=== PATIENT | male | born 1960 | race African-American/Black ===

== ENCOUNTER 2022-05-10 09:31 | Inpatient (IN) | payer OTHER ==
[2022-05-10] MEDS ORDERED: NICOTINE 10 MG CARTRIDGE (INHALER) IH PRN (11:52)
[2022-05-10] MEDS ORDERED: POLYETHYLENE GLYCOL (HEALTHYLAX) 3350 17 GM PACKET PO PRN (11:52)
[2022-05-10] MEDS ORDERED: MAG HYDROX/AL HYDROX/SIMETH 30 ML UNIT-DOSE CUP PO PRN (11:52)
[2022-05-10] MEDS ORDERED: LORazepam 1 MG TABLET PO PRN (11:52)
[2022-05-10] MEDS ORDERED: NALOXONE HCL 0.4 MG/ML VIAL IM PRN (11:52)
[2022-05-10] MEDS ORDERED: DICYCLOMINE HCL 10 MG CAPSULE PO PRN (11:52)
[2022-05-10] MEDS ORDERED: guaiFENesin 600 MG TABLET.ER (FP) PO PRN (11:52)
[2022-05-10] MEDS ORDERED: NICOTINE POLACRILEX 2 MG GUM BUC PRN (11:52)
[2022-05-10] MEDS ORDERED: MAGNESIUM HYDROX 2400MG/30ML ORAL SUSPENSION 30 ML CUP PO PRN (11:52)
[2022-05-10] MEDS ORDERED: ONDANSETRON *ODT* 4 MG TABLET SL PRN (11:52)
[2022-05-10] MEDS ORDERED: BENZOCAINE/MENTHOL (CHLORASEPTIC ) LOZENGE MM PRN (11:52)
[2022-05-10] MEDS ORDERED: BENZONATATE 200 MG CAPSULE PO PRN (11:52)
[2022-05-10] MEDS ORDERED: ACETAMINOPHEN 325 MG TABLET (FP) PO PRN (11:52)
[2022-05-10] MEDS ORDERED: IBUPROFEN 400 MG TABLET (FP) PO PRN (11:52)
[2022-05-10] MEDS ORDERED: NALOXONE HCL (KLOXXADO) 8 MG SPRAY NS PRN (11:52)
[2022-05-10] MEDS ORDERED: METHYL SALICYLATE/MENTHOL OINT 30 GM TUBE TP PRN (11:57)
[2022-05-10] MEDS ORDERED: ASPIRIN 81 MG CHEWABLE TABLETS PO SCH (12:00)
[2022-05-10] MEDS: TAMSULOSIN HCL 0.4 MG CAP PO SCH (12:56)
[2022-05-10] MEDS: METHOCARBAMOL 500 MG TABLET PO PRN (12:56)
[2022-05-10] MEDS: PANTOPRAZOLE 40 MG TABLET PO SCH (12:57)
[2022-05-10] MEDS: ASPIRIN 81 MG CHEWABLE TABLETS PO SCH (12:57)
[2022-05-10] MEDS: NICOTINE 21 MG/24 HOURS TOPICAL PATCH TD SCH (12:58)
[2022-05-10] MEDS: LORazepam 2 MG TABLET PO SCH ×2 (17:32→22:36)
[2022-05-10] MEDS: THIAMINE HCL 100 MG TABLET (FP) PO SCH (22:37)
[2022-05-10] MEDS: MELATONIN 5 MG TABLETS PO SCH (22:37)
[2022-05-10] MEDS: ATORVASTATIN CA 20 MG TABLET (FP) PO SCH (22:38)
[2022-05-11] MEDS: LORazepam 2 MG TABLET PO SCH ×4 (05:18→22:17)
[2022-05-11] MEDS: TAMSULOSIN HCL 0.4 MG CAP PO SCH (10:12)
[2022-05-11] MEDS: PRENATAL VITAMINS W/ FOLIC ACID TABLET (FP) PO SCH (10:12)
[2022-05-11] MEDS: METHOCARBAMOL 500 MG TABLET PO PRN (10:12)
[2022-05-11] MEDS: ASPIRIN 81 MG CHEWABLE TABLETS PO SCH (10:12)
[2022-05-11] MEDS: PANTOPRAZOLE 40 MG TABLET PO SCH (10:12)
[2022-05-11] MEDS: NICOTINE 21 MG/24 HOURS TOPICAL PATCH TD SCH (10:13)
[2022-05-11 10:58] LABS: HEMATOCRIT 34.5 % (35.4-49); HEMOGLOBIN 11.7 GM/dL (11.7-16.9); MCH 25.8 pg (25.7-33.7); MCHC 33.8 g/dl (32.0-35.9); MEAN CELL VOLUME 76.4 fl (80-96); MEAN PLT VOLUME 8.3 fl (7.5-11.1); PLATELET COUNT 212 10^3/uL (134-434); RBC 4.52 M/mm3 (4.00-5.60); RDW 17.3 % (11.9-15.9); WHITE BLOOD COUNT 5.1 K/mm3 (4.0-10.0)
[2022-05-11 11:13] LABS: CALCIUM 8.3 mg/dL (8.5-10.1)
[2022-05-11 11:14] LABS: ALBUMIN 3.2 g/dl (3.4-5.0)
[2022-05-11 11:17] LABS: CREATININE 0.9 mg/dL (0.55-1.3)
[2022-05-11 11:18] LABS: BILIRUBIN,TOTAL 0.7 mg/dL (0.2-1)
[2022-05-11 11:19] LABS: TOT PROT 6.8 g/dl (6.4-8.2)
[2022-05-11] MEDS: MELATONIN 5 MG TABLETS PO SCH (22:16)
[2022-05-11] MEDS: ATORVASTATIN CA 20 MG TABLET (FP) PO SCH (22:16)
[2022-05-11] MEDS: THIAMINE HCL 100 MG TABLET (FP) PO SCH (22:16)
[2022-05-12] MEDS: LORazepam 1 MG TABLET PO SCH ×4 (05:35→23:06)
[2022-05-12] MEDS: PRENATAL VITAMINS W/ FOLIC ACID TABLET (FP) PO SCH (10:04)
[2022-05-12] MEDS: ASPIRIN 81 MG CHEWABLE TABLETS PO SCH (10:05)
[2022-05-12] MEDS: PANTOPRAZOLE 40 MG TABLET PO SCH (10:05)
[2022-05-12] MEDS: TAMSULOSIN HCL 0.4 MG CAP PO SCH (10:05)
[2022-05-12] MEDS: NICOTINE 21 MG/24 HOURS TOPICAL PATCH TD SCH (10:07)
[2022-05-12] MEDS: LOPERAMIDE HCL 2 MG CAPSULE PO PRN (19:23)
[2022-05-12] MEDS: ATORVASTATIN CA 20 MG TABLET (FP) PO SCH (22:55)
[2022-05-12] MEDS: BISMUTH SUBSALICYLATE 524 MG/30 ML PO PRN (22:55)
[2022-05-12] MEDS: MELATONIN 5 MG TABLETS PO SCH (23:00)
[2022-05-12] MEDS: THIAMINE HCL 100 MG TABLET (FP) PO SCH (23:00)
[2022-05-13] MEDS ORDERED: LORazepam 0.5 MG TABLET PO PRN
[2022-05-13] MEDS: LORazepam 0.5 MG TABLET PO SCH ×4 (05:31→22:04)
[2022-05-13] MEDS: LOPERAMIDE HCL 2 MG CAPSULE PO PRN (05:32)
[2022-05-13] MEDS: TAMSULOSIN HCL 0.4 MG CAP PO SCH (10:29)
[2022-05-13] MEDS: ASPIRIN 81 MG CHEWABLE TABLETS PO SCH (10:29)
[2022-05-13] MEDS: PRENATAL VITAMINS W/ FOLIC ACID TABLET (FP) PO SCH (10:29)
[2022-05-13] MEDS: PANTOPRAZOLE 40 MG TABLET PO SCH (10:29)
[2022-05-13] MEDS: METHOCARBAMOL 500 MG TABLET PO PRN (10:30)
[2022-05-13] MEDS: NICOTINE 21 MG/24 HOURS TOPICAL PATCH TD SCH (10:30)
[2022-05-13 21:19] VITALS: RESP 18
[2022-05-13] MEDS: ATORVASTATIN CA 20 MG TABLET (FP) PO SCH (22:04)
[2022-05-13] MEDS: THIAMINE HCL 100 MG TABLET (FP) PO SCH (22:04)
[2022-05-13] MEDS: MELATONIN 5 MG TABLETS PO SCH (22:05)
[2022-05-14] MEDS ORDERED: LORazepam 0.5 MG TABLET PO ONE (05:00)
[2022-05-14] MEDS: BISMUTH SUBSALICYLATE 524 MG/30 ML PO PRN (05:33)
[2022-05-14 06:20] VITALS: PULSE 74
[2022-05-14 08:57] VITALS: BP 127/73; TEMP 97.5
[2022-05-14] MEDS: TAMSULOSIN HCL 0.4 MG CAP PO SCH (10:28)
[2022-05-14] MEDS: PRENATAL VITAMINS W/ FOLIC ACID TABLET (FP) PO SCH (10:28)
[2022-05-14] MEDS: NICOTINE 21 MG/24 HOURS TOPICAL PATCH TD SCH (10:28)
[2022-05-14] MEDS: LOPERAMIDE HCL 2 MG CAPSULE PO PRN (10:29)
[2022-05-14] MEDS: METHOCARBAMOL 500 MG TABLET PO PRN (10:29)
[2022-05-14] MEDS: PANTOPRAZOLE 40 MG TABLET PO SCH (10:29)
[2022-05-14] MEDS: ASPIRIN 81 MG CHEWABLE TABLETS PO SCH (10:29)
== END 2022-05-14 12:37 | disposition home or self-care (01) | DRG 897 ==
LOC: YASAS 09:31 → Y6N 12:11
PROVIDERS: ADMIT Allergy & Immunology; ATTEND Surgery
PROC: HZ2ZZZZ Detoxification Services for Substance Abuse Treatment (ICD-10-PCS; principal; 2022-05-10)
DX: F10.230 Alcohol dependence with withdrawal, uncomplicated (principal); F14.20 Cocaine dependence, uncomplicated; F19.282 Other psychoactive substance dependence with psychoactive substance-induced sleep disorder; I69.851 Hemiplegia and hemiparesis following other cerebrovascular disease affecting right dominant side; F12.20 Cannabis dependence, uncomplicated; F17.210 Nicotine dependence, cigarettes, uncomplicated; F19.24 Other psychoactive substance dependence with psychoactive substance-induced mood disorder; K21.9 Gastro-esophageal reflux disease without esophagitis; N40.1 Benign prostatic hyperplasia with lower urinary tract symptoms; R35.0 Frequency of micturition; Z96.642 Presence of left artificial hip joint; Z85.46 Personal history of malignant neoplasm of prostate; Z86.19 Personal history of other infectious and parasitic diseases; Z99.89 Dependence on other enabling machines and devices
CPT/HCPCS: 36415; 71046-TC-FY; 80053; 85027; 86593; 86780; 87811; C9803-CS; Q0162; U0003; U0005

== ENCOUNTER 2022-08-02 12:36 | Inpatient (IN) | payer OTHER ==
[2022-08-02 13:00] VITALS: BMI 24.3
[2022-08-02] MEDS ORDERED: ACETAMINOPHEN 325 MG TABLET (FP) PO PRN (14:22)
[2022-08-02] MEDS ORDERED: ONDANSETRON *ODT* 4 MG TABLET SL PRN (14:22)
[2022-08-02] MEDS ORDERED: BENZOCAINE/MENTHOL (CHLORASEPTIC ) LOZENGE MM PRN (14:22)
[2022-08-02] MEDS ORDERED: NALOXONE HCL 0.4 MG/ML VIAL IM PRN (14:22)
[2022-08-02] MEDS ORDERED: LORazepam 1 MG TABLET PO PRN (14:22)
[2022-08-02] MEDS ORDERED: BENZONATATE 200 MG CAPSULE PO PRN (14:22)
[2022-08-02] MEDS ORDERED: LOPERAMIDE HCL 2 MG CAPSULE PO PRN (14:22)
[2022-08-02] MEDS ORDERED: POLYETHYLENE GLYCOL (HEALTHYLAX) 3350 17 GM PACKET PO PRN (14:22)
[2022-08-02] MEDS ORDERED: BISMUTH SUBSALICYLATE 524 MG/30 ML PO PRN (14:22)
[2022-08-02] MEDS ORDERED: MAG HYDROX/AL HYDROX/SIMETH 30 ML UNIT-DOSE CUP PO PRN (14:22)
[2022-08-02] MEDS ORDERED: MAGNESIUM HYDROX 2400MG/30ML ORAL SUSPENSION 30 ML CUP PO PRN (14:22)
[2022-08-02] MEDS ORDERED: DICYCLOMINE HCL 10 MG CAPSULE PO PRN (14:22)
[2022-08-02] MEDS ORDERED: NICOTINE 10 MG CARTRIDGE (INHALER) IH PRN (14:22)
[2022-08-02] MEDS ORDERED: guaiFENesin 600 MG TABLET.ER (FP) PO PRN (14:22)
[2022-08-02] MEDS ORDERED: METHOCARBAMOL 500 MG TABLET PO PRN (14:22)
[2022-08-02] MEDS ORDERED: NALOXONE HCL (KLOXXADO) 8 MG SPRAY NS PRN (14:22)
[2022-08-02] MEDS ORDERED: ASPIRIN 81 MG CHEWABLE TABLETS PO SCH (15:00)
[2022-08-02] MEDS ORDERED: PANTOPRAZOLE 20 MG TABLET PO SCH (15:00)
[2022-08-02] MEDS: PANTOPRAZOLE 20 MG TABLET PO SCH (17:45)
[2022-08-02] MEDS: LORazepam 2 MG TABLET PO SCH ×2 (17:45→22:35)
[2022-08-02] MEDS: ASPIRIN 81 MG CHEWABLE TABLETS PO SCH (17:45)
[2022-08-02] MEDS: ATORVASTATIN CA 40 MG TABLET (FP) PO SCH (22:36)
[2022-08-02] MEDS: MELATONIN 5 MG TABLETS PO SCH (22:36)
[2022-08-02] MEDS: THIAMINE HCL 100 MG TABLET (FP) PO SCH (22:36)
[2022-08-03] MEDS: METHYL SALICYLATE/MENTHOL OINT 30 GM TUBE TP SCH ×3 (01:11→22:22)
[2022-08-03] MEDS: LORazepam 2 MG TABLET PO SCH ×4 (05:34→22:21)
[2022-08-03] MEDS: PRENATAL VITAMINS W/ FOLIC ACID TABLET (FP) PO SCH (10:29)
[2022-08-03] MEDS: PANTOPRAZOLE 20 MG TABLET PO SCH (10:29)
[2022-08-03] MEDS: TAMSULOSIN HCL 0.4 MG CAP PO SCH (10:29)
[2022-08-03] MEDS: ASPIRIN 81 MG CHEWABLE TABLETS PO SCH (10:29)
[2022-08-03 11:34] LABS: HEMATOCRIT 32.1 % (35.4-49); HEMOGLOBIN 10.5 GM/dL (11.7-16.9); MCHC 32.8 g/dl (32.0-35.9); MEAN CELL VOLUME 76.2 fl (80-96); MEAN PLT VOLUME 7.9 fl (7.5-11.1); PLATELET COUNT 350 10^3/uL (134-434); RBC 4.21 M/mm3 (4.00-5.60); RDW 17.9 % (11.9-15.9); WHITE BLOOD COUNT 4.9 K/mm3 (4.0-10.0)
[2022-08-03 11:40] LABS: POTASSIUM 4.2 mmol/L (3.5-5.1)
[2022-08-03 11:42] LABS: CALCIUM 8.2 mg/dL (8.5-10.1)
[2022-08-03 11:43] LABS: ALBUMIN 2.8 g/dl (3.4-5.0); BLOOD UREA NITROGEN 14.5 mg/dL (7-18)
[2022-08-03 11:48] LABS: BILIRUBIN,TOTAL 0.6 mg/dL (0.2-1); TOT PROT 5.9 g/dl (6.4-8.2)
[2022-08-03 12:39] LABS: HIV INTERPRETATION NEGATIVE (NEGATIVE)
[2022-08-03] MEDS: MELATONIN 5 MG TABLETS PO SCH (22:22)
[2022-08-03] MEDS: ATORVASTATIN CA 40 MG TABLET (FP) PO SCH (22:22)
[2022-08-03] MEDS: THIAMINE HCL 100 MG TABLET (FP) PO SCH (22:22)
[2022-08-04] MEDS: LORazepam 1 MG TABLET PO SCH ×4 (05:32→22:26)
[2022-08-04] MEDS: METHYL SALICYLATE/MENTHOL OINT 30 GM TUBE TP SCH ×2 (09:56→22:26)
[2022-08-04] MEDS: PRENATAL VITAMINS W/ FOLIC ACID TABLET (FP) PO SCH (09:56)
[2022-08-04] MEDS: ASPIRIN 81 MG CHEWABLE TABLETS PO SCH (09:56)
[2022-08-04] MEDS: TAMSULOSIN HCL 0.4 MG CAP PO SCH (09:56)
[2022-08-04] MEDS: PANTOPRAZOLE 20 MG TABLET PO SCH (09:56)
[2022-08-04] MEDS: ATORVASTATIN CA 40 MG TABLET (FP) PO SCH (22:26)
[2022-08-04] MEDS: MELATONIN 5 MG TABLETS PO SCH (22:26)
[2022-08-04] MEDS: THIAMINE HCL 100 MG TABLET (FP) PO SCH (22:26)
[2022-08-05] MEDS ORDERED: LORazepam 0.5 MG TABLET PO PRN
[2022-08-05] MEDS: LORazepam 0.5 MG TABLET PO SCH ×4 (05:29→22:32)
[2022-08-05] MEDS: ASPIRIN 81 MG CHEWABLE TABLETS PO SCH (10:06)
[2022-08-05] MEDS: METHYL SALICYLATE/MENTHOL OINT 30 GM TUBE TP SCH ×2 (10:06→22:33)
[2022-08-05] MEDS: PRENATAL VITAMINS W/ FOLIC ACID TABLET (FP) PO SCH (10:06)
[2022-08-05] MEDS: PANTOPRAZOLE 20 MG TABLET PO SCH (10:06)
[2022-08-05] MEDS: TAMSULOSIN HCL 0.4 MG CAP PO SCH (10:06)
[2022-08-05] MEDS: ATORVASTATIN CA 40 MG TABLET (FP) PO SCH (22:31)
[2022-08-05] MEDS: THIAMINE HCL 100 MG TABLET (FP) PO SCH (22:32)
[2022-08-05] MEDS: MELATONIN 5 MG TABLETS PO SCH (22:33)
[2022-08-06] MEDS ORDERED: LORazepam 0.5 MG TABLET PO ONE (05:00)
[2022-08-06] MEDS: ASPIRIN 81 MG CHEWABLE TABLETS PO SCH (10:28)
[2022-08-06] MEDS: TAMSULOSIN HCL 0.4 MG CAP PO SCH (10:28)
[2022-08-06] MEDS: PANTOPRAZOLE 20 MG TABLET PO SCH (10:29)
[2022-08-06] MEDS: PRENATAL VITAMINS W/ FOLIC ACID TABLET (FP) PO SCH (10:29)
[2022-08-06] MEDS: METHYL SALICYLATE/MENTHOL OINT 30 GM TUBE TP SCH ×2 (10:29→21:46)
[2022-08-06] MEDS: THIAMINE HCL 100 MG TABLET (FP) PO SCH (21:46)
[2022-08-06] MEDS: ATORVASTATIN CA 40 MG TABLET (FP) PO SCH (21:46)
[2022-08-06] MEDS: MELATONIN 5 MG TABLETS PO SCH (21:46)
[2022-08-06] MEDS ORDERED: guaiFENesin 200 MG/10 ML 10 ML UNIT-DOSE CUPS PO PRN (21:50)
[2022-08-07] MEDS ORDERED: LORazepam 0.5 MG TABLET PO ONE (06:00)
[2022-08-07] MEDS: PRENATAL VITAMINS W/ FOLIC ACID TABLET (FP) PO SCH (10:57)
[2022-08-07] MEDS: ASPIRIN 81 MG CHEWABLE TABLETS PO SCH (10:57)
[2022-08-07] MEDS: METHYL SALICYLATE/MENTHOL OINT 30 GM TUBE TP SCH ×2 (10:58→22:37)
[2022-08-07] MEDS: TAMSULOSIN HCL 0.4 MG CAP PO SCH (10:58)
[2022-08-07] MEDS: PANTOPRAZOLE 20 MG TABLET PO SCH (10:58)
[2022-08-07] MEDS: THIAMINE HCL 100 MG TABLET (FP) PO SCH (22:38)
[2022-08-07] MEDS: MELATONIN 5 MG TABLETS PO SCH (22:38)
[2022-08-07] MEDS: ATORVASTATIN CA 40 MG TABLET (FP) PO SCH (22:38)
[2022-08-08] MEDS: ASPIRIN 81 MG CHEWABLE TABLETS PO SCH (10:00)
[2022-08-08] MEDS: METHYL SALICYLATE/MENTHOL OINT 30 GM TUBE TP SCH ×2 (10:00→21:53)
[2022-08-08] MEDS: PRENATAL VITAMINS W/ FOLIC ACID TABLET (FP) PO SCH (10:00)
[2022-08-08] MEDS: TAMSULOSIN HCL 0.4 MG CAP PO SCH (10:00)
[2022-08-08] MEDS: PANTOPRAZOLE 20 MG TABLET PO SCH (10:01)
[2022-08-08] MEDS: THIAMINE HCL 100 MG TABLET (FP) PO SCH (21:53)
[2022-08-08] MEDS: ATORVASTATIN CA 40 MG TABLET (FP) PO SCH (21:53)
[2022-08-08] MEDS: MELATONIN 5 MG TABLETS PO SCH (21:53)
[2022-08-09] MEDS: ASPIRIN 81 MG CHEWABLE TABLETS PO SCH (11:27)
[2022-08-09] MEDS: PANTOPRAZOLE 20 MG TABLET PO SCH ×2 (11:28→14:20)
[2022-08-09] MEDS: PRENATAL VITAMINS W/ FOLIC ACID TABLET (FP) PO SCH (11:28)
[2022-08-09] MEDS: TAMSULOSIN HCL 0.4 MG CAP PO SCH (11:28)
[2022-08-09] MEDS: METHYL SALICYLATE/MENTHOL OINT 30 GM TUBE TP SCH ×2 (11:28→21:51)
[2022-08-09] MEDS ORDERED: AZITHROMYCIN 250 MG TABLET PO ONE (13:48)
[2022-08-09] MEDS: MELATONIN 5 MG TABLETS PO SCH (21:51)
[2022-08-09] MEDS: THIAMINE HCL 100 MG TABLET (FP) PO SCH (21:51)
[2022-08-09] MEDS: ATORVASTATIN CA 40 MG TABLET (FP) PO SCH (21:51)
[2022-08-09] MEDS ORDERED: ATORVASTATIN CA 20 MG TABLET (FP) PO SCH (22:00)
[2022-08-10] MEDS: PRENATAL VITAMINS W/ FOLIC ACID TABLET (FP) PO SCH (10:57)
[2022-08-10] MEDS: AZITHROMYCIN 250 MG TABLET PO SCH (10:57)
[2022-08-10] MEDS: METHYL SALICYLATE/MENTHOL OINT 30 GM TUBE TP SCH ×2 (10:57→22:05)
[2022-08-10] MEDS: ASPIRIN 81 MG CHEWABLE TABLETS PO SCH (10:57)
[2022-08-10] MEDS: TAMSULOSIN HCL 0.4 MG CAP PO SCH (10:57)
[2022-08-10] MEDS: PANTOPRAZOLE 20 MG TABLET PO SCH ×2 (10:58→11:18)
[2022-08-10] MEDS: ATORVASTATIN CA 40 MG TABLET (FP) PO SCH (22:04)
[2022-08-10] MEDS: THIAMINE HCL 100 MG TABLET (FP) PO SCH (22:05)
[2022-08-10] MEDS: MELATONIN 5 MG TABLETS PO SCH (22:05)
[2022-08-11] MEDS: TAMSULOSIN HCL 0.4 MG CAP PO SCH (10:45)
[2022-08-11] MEDS: ASPIRIN 81 MG CHEWABLE TABLETS PO SCH (10:45)
[2022-08-11] MEDS: METHYL SALICYLATE/MENTHOL OINT 30 GM TUBE TP SCH ×2 (10:45→21:14)
[2022-08-11] MEDS: PRENATAL VITAMINS W/ FOLIC ACID TABLET (FP) PO SCH (10:45)
[2022-08-11] MEDS: PANTOPRAZOLE 20 MG TABLET PO SCH (10:46)
[2022-08-11] MEDS: AZITHROMYCIN 250 MG TABLET PO SCH (10:46)
[2022-08-11] MEDS: ATORVASTATIN CA 40 MG TABLET (FP) PO SCH (21:14)
[2022-08-11] MEDS: THIAMINE HCL 100 MG TABLET (FP) PO SCH (21:14)
[2022-08-11] MEDS: MELATONIN 5 MG TABLETS PO SCH (21:14)
[2022-08-12 09:04] VITALS: RESP 18
[2022-08-12] MEDS: PANTOPRAZOLE 20 MG TABLET PO SCH (10:22)
[2022-08-12] MEDS: METHYL SALICYLATE/MENTHOL OINT 30 GM TUBE TP SCH ×2 (10:22→22:19)
[2022-08-12] MEDS: PRENATAL VITAMINS W/ FOLIC ACID TABLET (FP) PO SCH (10:22)
[2022-08-12] MEDS: AZITHROMYCIN 250 MG TABLET PO SCH (10:22)
[2022-08-12] MEDS: ASPIRIN 81 MG CHEWABLE TABLETS PO SCH (10:22)
[2022-08-12] MEDS: TAMSULOSIN HCL 0.4 MG CAP PO SCH (10:22)
[2022-08-12] MEDS: ATORVASTATIN CA 40 MG TABLET (FP) PO SCH (22:18)
[2022-08-12] MEDS: MELATONIN 5 MG TABLETS PO SCH (22:19)
[2022-08-12] MEDS: THIAMINE HCL 100 MG TABLET (FP) PO SCH (22:19)
[2022-08-13 06:56] VITALS: BP 117/65; PULSE 77; TEMP 97.5
== END 2022-08-13 08:27 | disposition home or self-care (01) | DRG 896 ==
LOC: YASAS 12:36 → Y3N 16:07
PROVIDERS: ADMIT Allergy & Immunology; ATTEND Surgery
PROC: HZ2ZZZZ Detoxification Services for Substance Abuse Treatment (ICD-10-PCS; principal; 2022-08-02)
DX: F10.230 Alcohol dependence with withdrawal, uncomplicated (principal); U07.1 COVID-19; F14.20 Cocaine dependence, uncomplicated; F19.282 Other psychoactive substance dependence with psychoactive substance-induced sleep disorder; I69.851 Hemiplegia and hemiparesis following other cerebrovascular disease affecting right dominant side; F17.210 Nicotine dependence, cigarettes, uncomplicated; F32.A Depression, unspecified; E78.5 Hyperlipidemia, unspecified; K21.9 Gastro-esophageal reflux disease without esophagitis; M15.9 Polyosteoarthritis, unspecified; M54.50 Low back pain, unspecified; G89.29 Other chronic pain; Z85.46 Personal history of malignant neoplasm of prostate; N40.1 Benign prostatic hyperplasia with lower urinary tract symptoms; R35.0 Frequency of micturition; Z86.69 Personal history of other diseases of the nervous system and sense organs; Z99.89 Dependence on other enabling machines and devices; Z59.00 Homelessness unspecified
CPT/HCPCS: 36415; 80053; 85027; 86593; 86780; 87070; 87205; 87389; 87635; 87811